=== PATIENT | male | born 1995 | race African-American/Black ===

== ENCOUNTER 2020-11-04 15:46 | Emergency (ER) | payer SELFPAY ==
[2020-11-04 23:15] LABS: SARS-CoV-2 PCR by NAA Not Detected (NotDetected)
== END 2020-11-04 16:40 | disposition home or self-care (01) ==
LOC: ERS 15:46
DX: R05 Cough (principal); R06.02 Shortness of breath; R09.3 Abnormal sputum; Z20.822 Contact with and (suspected) exposure to COVID-19; J45.909 Unspecified asthma, uncomplicated
CPT/HCPCS: 87635; 99284; U0003; U0005